=== PATIENT | female | born 1990 | race Caucasian/White ===

== ENCOUNTER 2019-12-01 02:05 | Emergency (ER) | payer MEDICAID ==
[~2019-12-01] VITALS: Ht 157.5 cm; Wt 54.8 kg
--- NOTE | 2019-12-01 00:07 | NUR ---
PT PROVIDED URINE CUP AT THIS TIME
[2019-12-01 00:58] LABS: BASOPHILS # (AUTO) 0.04 x10^3/uL (0-0.1); BASOPHILS % (AUTO) 0 % (0-1); EOSINOPHILS # (AUTO) 0.22 x10^3/uL (0-0.4); EOSINOPHILS % (AUTO) 2 % (1-7); LYMPHOCYTES # (AUTO) 3.11 x10^3/uL (1-3.4); LYMPHOCYTES % (AUTO) 27 % (22-44); MD NO; MEAN CORPUSCULAR HGB CONC 32.7 g/dL (32.4-35.8); MEAN PLATELET VOLUME 8.9 fL (7.4-10.4); MONOCYTES # (AUTO) 0.73 x10^3/uL (0.2-0.8); MONOCYTES % (AUTO) 6 % (2-9); NEUTROPHILS # (AUTO) 7.32 x10^3/uL (1.8-6.8); NEUTROPHILS % (AUTO) 64 % (42-75); PLATELET COUNT 295 x10^3/uL (130-400); RED BLOOD COUNT 4.93 x10^6/uL (3.82-5.3); RED CELL DISTRIBUTION WIDTH 14.6 % (9.6-15.2)
[2019-12-01 01:03] LABS: ALANINE AMINOTRANSFERASE 15 U/L (12-78); ALBUMIN 4.1 g/dL (3.4-5.0); ANION GAP 7 mmol/L (5-15); CALCIUM 8.8 mg/dL (8.5-10.1); CHLORIDE 111 mmol/L (98-107); CREATININE 0.81 mg/dL (0.55-1.02)
--- NOTE | 2019-12-01 01:04 | NUR ---
REPORT TO GISELL YANES
[2019-12-01 01:06] LABS: ALKALINE PHOSPHATASE 81 U/L (45-117); BILIRUBIN,TOTAL 0.3 mg/dL (0.2-1.0); TOTAL PROTEIN 7.5 g/dL (6.4-8.2)
[~2019-12-01 02:05] MED LIST: HYDROcodone/APAP 5/325 TABLET ONE; HYDROcodone/APAP 5/325 TABLET PO ONE; ONDANSETRON ODT 4 MG ONE; ONDANSETRON ODT 4 MG PO ONE
[2019-12-01] MEDS ORDERED: HYDROcodone/APAP 5/325 TABLET ONE (02:06)
[2019-12-01 02:20] LABS: HCG UR SG 1.011 (1.003-1.030)
[2019-12-01 02:26] LABS: MICROSCOPIC INDICATED
[2019-12-01] MEDS ORDERED: KETOROLAC 30 MG/1 ML IM ONE (03:30)
[2019-12-01] MEDS ORDERED: CEFDINIR 300 MG CAPSULE PO ONE (03:30)
[2019-12-01] MEDS ORDERED: CEFDINIR 300 MG CAPSULE ONE (03:36)
[2019-12-01] MEDS ORDERED: KETOROLAC 30 MG/1 ML ONE (03:36)
[2019-12-01 03:44] VITALS: BP 117/56
== END 2019-12-01 03:47 | disposition home or self-care (01) ==
LOC: ED 02:05
DX: N30.00 Acute cystitis without hematuria (principal); R10.9 Unspecified abdominal pain
CPT/HCPCS: 36415; 80053; 81001; 81025; 85025; 87077; 87086; 96372; 99284; J1885; Q0162; 87186

== ENCOUNTER 2019-12-03 11:27 | Emergency (ER) | payer MEDICAID ==
[~2019-12-03] VITALS: Ht 157.5 cm; Wt 55.9 kg
[2019-12-03] MEDS ORDERED: MORPHINE SULFATE 4 MG/ML, 1ML ONE ×2 (12:16→13:22)
[2019-12-03] MEDS ORDERED: ONDANSETRON 2MG/ML, 2ML ONE (12:16)
[2019-12-03] MEDS ORDERED: ONDANSETRON 2MG/ML, 2ML IVPush ONE (12:30)
[2019-12-03] MEDS ORDERED: SODIUM CHLORIDE FLUSH 10ML SYR IVF ONE (12:30)
[2019-12-03 12:37] LABS: BASOPHILS # (AUTO) 0.04 x10^3/uL (0-0.1); BASOPHILS % (AUTO) 0 % (0-1); EOSINOPHILS # (AUTO) 0.14 x10^3/uL (0-0.4); EOSINOPHILS % (AUTO) 1 % (1-7); LYMPHOCYTES # (AUTO) 2.16 x10^3/uL (1-3.4); LYMPHOCYTES % (AUTO) 22 % (22-44); MD NO; MEAN CORPUSCULAR HEMOGLOBIN 28.6 pg (27.0-34.8); MEAN CORPUSCULAR HGB CONC 32.1 g/dL (32.4-35.8); MEAN PLATELET VOLUME 8.7 fL (7.4-10.4); MONOCYTES % (AUTO) 4 % (2-9); NEUTROPHILS # (AUTO) 7.26 x10^3/uL (1.8-6.8); NEUTROPHILS % (AUTO) 73 % (42-75); PLATELET COUNT 270 x10^3/uL (130-400); RED BLOOD COUNT 4.96 x10^6/uL (3.82-5.3); RED CELL DISTRIBUTION WIDTH 14.5 % (9.6-15.2)
[2019-12-03 12:39] LABS: MICROSCOPIC INDICATED
[2019-12-03] MEDS: MORPHINE SULFATE 4 MG/ML, 1ML IVPush PRN ×2 (12:40→13:24)
[2019-12-03 12:44] VITALS: BP 115/72
[2019-12-03 12:50] LABS: ALANINE AMINOTRANSFERASE 16 U/L (12-78); ANION GAP 5 mmol/L (5-15); CALCIUM 8.5 mg/dL (8.5-10.1); CHLORIDE 111 mmol/L (98-107)
[2019-12-03 12:55] LABS: ALKALINE PHOSPHATASE 74 U/L (45-117); BILIRUBIN,TOTAL 0.3 mg/dL (0.2-1.0); TOTAL PROTEIN 7.4 g/dL (6.4-8.2)
[2019-12-03] MEDS ORDERED: OMNIPAQUE 350 MG/ML, 100ML BOTTLE ONE (14:05)
[2019-12-03] MEDS ORDERED: HYDROmorphone 1 MG/ML, 1ML INJ ONE (14:18)
[2019-12-03] MEDS ORDERED: HYDROmorphone 2 MG/ML, 1ML IVPush ONE (14:30)
== END 2019-12-03 15:17 | disposition home or self-care (01) ==
LOC: ED 11:58
DX: R10.31 Right lower quadrant pain (principal); R10.30 Lower abdominal pain, unspecified; F17.200 Nicotine dependence, unspecified, uncomplicated; Z88.2 Allergy status to sulfonamides; Z88.0 Allergy status to penicillin; Z87.442 Personal history of urinary calculi
CPT/HCPCS: 36415; 74177; 80053; 81001; 84703; 85025; 87086; 96374; 96375; 96376; 99285; J1170; J2270; J2405; Q9967

== ENCOUNTER 2019-12-06 16:24 | Emergency (ER) | payer MEDICAID ==
[~2019-12-06] VITALS: Ht 157.5 cm; Wt 55.9 kg
--- NOTE | 2019-12-06 17:30 | NUR ---
TELEMEDICINE PHYSICIAN: PT AMBULATORY TO ROOM FROM LOBBY
--- NOTE | 2019-12-06 18:02 | NUR ---
PT PROVIDED URINE SAMPLE. UA ORDERED PER PROTOCOL AND SENT TO LAB.
[2019-12-06] MEDS ORDERED: MAALOX/HYOSCYAMINE/LIDOCAINE 45 ML BTL ONE (18:15)
[2019-12-06] MEDS ORDERED: ONDANSETRON 2MG/ML, 2ML ONE (18:15)
--- NOTE | 2019-12-06 18:19 | NUR ---
PIV PLACED, LABS DRAWN AND SENT TO LAB WITH LAB STICKERS. IVF RUNNING. MEDS ADMIN PER MAY. WARM BLANKET PROVIDED. CALL LIGHT IN REACH.
[2019-12-06 18:22] LABS: HCG UR SG 1.007 (1.003-1.030)
[2019-12-06 18:27] LABS: BASOPHILS # (AUTO) 0.11 x10^3/uL (0-0.1); BASOPHILS % (AUTO) 1 % (0-1); EOSINOPHILS # (AUTO) 0.37 x10^3/uL (0-0.4); EOSINOPHILS % (AUTO) 4 % (1-7); LYMPHOCYTES # (AUTO) 2.41 x10^3/uL (1-3.4); LYMPHOCYTES % (AUTO) 24 % (22-44); MD NO; MEAN CORPUSCULAR HEMOGLOBIN 28.6 pg (27.0-34.8); MEAN CORPUSCULAR HGB CONC 32.1 g/dL (32.4-35.8); MEAN PLATELET VOLUME 8.7 fL (7.4-10.4); MONOCYTES # (AUTO) 0.61 x10^3/uL (0.2-0.8); MONOCYTES % (AUTO) 6 % (2-9); NEUTROPHILS # (AUTO) 6.35 x10^3/uL (1.8-6.8); NEUTROPHILS % (AUTO) 65 % (42-75); PLATELET COUNT 282 x10^3/uL (130-400); RED BLOOD COUNT 4.75 x10^6/uL (3.82-5.3); RED CELL DISTRIBUTION WIDTH 14.8 % (9.6-15.2)
[2019-12-06 18:29] LABS: ALANINE AMINOTRANSFERASE 16 U/L (12-78); ALBUMIN 3.8 g/dL (3.4-5.0); ANION GAP 5 mmol/L (5-15); CALCIUM 8.5 mg/dL (8.5-10.1); CHLORIDE 110 mmol/L (98-107); CREATININE 1.08 mg/dL (0.55-1.02)
[2019-12-06] MEDS ORDERED: MAALOX/HYOSCYAMINE/LIDOCAINE 45 ML BTL PO ONE (18:30)
[2019-12-06] MEDS ORDERED: ONDANSETRON 2MG/ML, 2ML IVPush ONE (18:30)
[2019-12-06] MEDS ORDERED: SODIUM CHLORIDE 0.9% 1,000ML IVBOLUS ONE (18:30)
[2019-12-06 18:32] LABS: ALKALINE PHOSPHATASE 72 U/L (45-117); BILIRUBIN,TOTAL 0.2 mg/dL (0.2-1.0)
[2019-12-06 18:33] LABS: MICROSCOPIC INDICATED
--- NOTE | 2019-12-06 18:46 | NUR ---
BREAK RN: IVF FINISHED, MONITORING BACK IN PLACE, VSS, PATIENT REPORTS PAIN IS STILL THE SAME IT WAS UPON ARRIVAL, WILL NOTIFY PROVIDER
[2019-12-06 18:58] VITALS: BP 102/52
--- NOTE | 2019-12-06 19:06 | NUR ---
ALL RESULTS ARE BACK AT THIS TIME. CHART UP FOR RECHECK.
[2019-12-06] MEDS ORDERED: HYDROmorphone 1 MG/ML, 1ML INJ ONE (19:07)
--- NOTE | 2019-12-06 19:11 | NUR ---
MD AT BEDSIDE TO UPDATE PT ON POC.
[2019-12-06] MEDS ORDERED: HYDROmorphone 2 MG/ML, 1ML IVPush PRN (19:30)
[2019-12-06] MEDS ORDERED: HYDROmorphone 1 MG/ML, 1ML INJ IVPush PRN (19:30)
== END 2019-12-06 19:58 | disposition home or self-care (01) ==
LOC: ED 18:50
DX: R10.84 Generalized abdominal pain (principal); K59.00 Constipation, unspecified; F17.200 Nicotine dependence, unspecified, uncomplicated
CPT/HCPCS: 36415; 80053; 81001; 81025; 83690; 85025; 96361; 96374; 96375; 99284; J1170; J2405; J7030